=== PATIENT | male | born 1985 | race Two or more races ===

== ENCOUNTER 2019-05-04 10:56 | Emergency (ER) | payer SELFPAY ==
[~2019-05-04] VITALS: Ht 167.6 cm; Wt 73.5 kg
--- NOTE | 2019-05-04 10:56 | NUR ---
"BILATERAL SCROTAL PAIN SINCE 0600 THIS MORNING, DARKER IN COLOR,DENIES TRAUMA" pt aaox4, -sob, nad, vss, pt on monitor, pending md vick
[2019-05-04] MEDS ORDERED: IV NS 0.9% 1,000 ML BAG IV ONE (11:30)
[2019-05-04 11:47] LABS: APPEARANCE,URINE Clear (CLEAR); BILIRUBIN,URINE Negative (NEGATIVE); BLOOD, URINE Small Ery/uL (NEGATIVE); COLOR,URINE Yellow (YELLOW); KETONES,URINE Negative (NEGATIVE); LEUKOCYTE ESTERASE ,URINE Negative (NEGATIVE); NITRITE, URINE Negative (NEGATIVE); PH,URINE 7.5 (5.0-8.0); PROTEIN,URINE Negative (NEGATIVE); UGLUCOSE Negative (NEGATIVE); UROBILINOGEN,URINE 0.2 EU/dL (0.2)
[2019-05-04 11:48] LABS: BASOPHILS % (AUTO) 0.4 % (0.0-2.0); EOSINOPHILS % (AUTO) 0.2 % (0.0-6.0); HEMATOCRIT 44 % (39-51); HEMOGLOBIN 14.7 g/dL (13.5-17.5); LYMPHOCYTES # (AUTO) 1.5 /CMM (0.8-4.8); LYMPHOCYTES % (AUTO) 12.5 % (20.0-44.0); MEAN CORPUSCULAR HGB CONC 34 g/dl (31.0-36.0); MEAN CORPUSCULAR VOLUME 86 fL (80-96); MONOCYTES # (AUTO) 0.5 /CMM (0.1-1.30); MONOCYTES % (AUTO) 4.4 % (2.0-12.0); NEUTROPHILS # (AUTO) 9.8 /CMM (1.8-8.9); NEUTROPHILS % (AUTO) 82.5 % (43.0-81.0); PLATELET COUNT (AUTO) 250 /CMM (150-450); RED BLOOD CELL COUNT(AUTO) 5.08 MIL/uL (4.5-6.0); WHITE BLOOD COUNT (AUTO) 11.9 K/uL (4.3-11.0)
[2019-05-04 11:49] LABS: BACTERIA,URINE None seen /HPF (None Seen); RBC,URINE 0-2 /HPF (0-2); SQUAMOUS EPITHELIAL CELL,UR None Seen /HPF (None Seen); WBC,URINE 0-2 /HPF (0-3)
[2019-05-04 11:56] LABS: CREATININE 0.9 mg/dL (0.6-1.3); POTASSIUM 3.9 mmol/L (3.5-5.1)
[2019-05-04] MEDS ORDERED: CT SWABBABLE VALVE TRANS SET 1 EA INFUS.SET MC ONE (12:24)
[2019-05-04] MEDS ORDERED: IOHEXOL-300 100 ML VIAL IV ONE (12:24)
[2019-05-04] MEDS ORDERED: IV NS 0.9% 250 ML IV ONE (12:24)
[2019-05-04] MEDS ORDERED: CEFTRIAXONE 1GM BAG (ER ONLY) 1 GM/50 ML PIGGYBACK IV ONE (13:30)
[2019-05-04] MEDS ORDERED: CEFTRIAXONE 1GM BAG (ER ONLY) 50 ML IV ONE (13:55)
[2019-05-04 14:00] VITALS: BP 155/80
--- NOTE | 2019-05-04 14:49 | NUR ---
Patient discharged to home in stable condition. Written and verbal after care instructions given. Patient verbalizes understanding of instruction.IV removed. Catheter intact and site benign. Pressure and 4x4 applied to site. No bleeding noted.
== END 2019-05-04 14:59 | disposition home or self-care (01) ==
LOC: ER 10:58
DX: S30.1XXA Contusion of abdominal wall, initial encounter (principal); S30.22XA Contusion of scrotum and testes, initial encounter; N49.2 Inflammatory disorders of scrotum; F17.200 Nicotine dependence, unspecified, uncomplicated; X58.XXXA Exposure to other specified factors, initial encounter; Y93.89 Activity, other specified; Y92.89 Other specified places as the place of occurrence of the external cause; Y99.8 Other external cause status
CPT/HCPCS: 36415; 74177; 76870; 80048; 81001; 85025; 85730; 96365; 99284; J0696; J7050; Q9967; 81000-TC

== ENCOUNTER 2025-06-30 08:45 | Emergency (ER) | payer BC, MEDICAID ==
[~2025-06-30] VITALS: Ht 162.6 cm; Wt 70.3 kg
[2025-06-30 08:59] VITALS: BP 163/112; TEMP 98.1
[2025-06-30] MEDS ORDERED: IBUP-1955 PO (09:12)
[2025-06-30] MEDS ORDERED: AMOX-430 PO (09:12)
[2025-06-30 09:22] VITALS: O2SAT 99
== END 2025-06-30 09:23 | disposition home or self-care (01) ==
LOC: ER 08:59
DX: H66.92 Otitis media, unspecified, left ear (principal); F17.200 Nicotine dependence, unspecified, uncomplicated